=== PATIENT | male | born 1945 | race Caucasian/White ===

== ENCOUNTER 2023-01-17 06:37 | Observation (INO) | payer MEDICARE, BC ==
[2023-01-13 14:57] VITALS: BMI 23.7
[2023-01-17] MEDS ORDERED: fentaNYL PF 100 MCG/2 ML SYRINGE ONE (06:56)
[2023-01-17 07:56] LABS: Hematocrit 34.1 % (42.0-52.0); Hemoglobin 11.9 g/dL (14.0-18.0)
[2023-01-17] MEDS ORDERED: EPINEPHrine 1 MG/ML AMP ONE (07:57)
[2023-01-17] MEDS ORDERED: Lidocaine 1% (PF) 30 ML VIAL ONE (07:57)
[2023-01-17] MEDS ORDERED: Bacitracin Zinc Ointment 30 gm TUBE ONE (07:57)
[2023-01-17] MEDS ORDERED: SUGAMMADEX SODIUM 200 MG/2 ML VIAL ONE (08:04)
[2023-01-17] MEDS ORDERED: CEFAZOLIN 2 GM VIAL ONE (08:16)
[2023-01-17] MEDS ORDERED: Sodium Chloride 0.9% 100 ML ONE (08:16)
[2023-01-17 08:18] LABS: Anion Gap 11 mmol/L (10-20); BUN (Urea Nitrogen) 6 mg/dL (8.4-25.7); Calc. Creatinine Clearance 100 mL/min (70-130); Calcium 8.8 mg/dL (7.8-10.44); Carbon Dioxide 24 mmol/L (23-31); Chloride 101 mmol/L (98-107); Estimated GFR 94; Glucose 87 mg/dL (83-110); Potassium 3.9 mmol/L (3.5-5.1); Sodium 132 mmol/L (136-145)
[2023-01-17] MEDS ORDERED: PROPOFOL 200 MG/20 ML VIAL ONE (08:30)
[2023-01-17] MEDS ORDERED: Dexamethasone 20 MG/5 ML VIAL ONE (08:30)
[2023-01-17] MEDS ORDERED: Rocuronium Bromide 10 MG/ML (10ML VIAL) ONE (08:30)
[2023-01-17] MEDS ORDERED: Ondansetron PF 4 MG/2 ML Vial ONE (08:30)
[2023-01-17] MEDS ORDERED: ePHEDrine Sulfate 50 MG/10 ML VIAL ONE (08:30)
[2023-01-17] MEDS ORDERED: Lidocaine 1% PF 5 ML VIAL ONE (08:30)
[2023-01-17] MEDS ORDERED: PHENYLEPHRINE-NS 100 MCG/ML 10 ML SYRINGE ONE (08:30)
[2023-01-17] MEDS ORDERED: Morphine 2 MG/ML VIAL SLOW IVP PRN (11:59)
[2023-01-17] MEDS ORDERED: HYDROcodone/Acetaminophen 5/325 mg Tablet PO PRN (11:59)
[2023-01-17] MEDS ORDERED: Lactated Ringer's 1,000 ML IV SCH (12:00)
[2023-01-17] MEDS ORDERED: Ondansetron PF 4 MG/2 ML Vial IVP PRN (12:00)
[2023-01-17] MEDS ORDERED: diphenhydrAMINE 50 MG/ML VIAL IVP PRN (12:01)
[2023-01-17] MEDS ORDERED: diphenhydrAMINE 50 MG/ML VIAL IVP SCH (21:00)
[2023-01-17] MEDS ORDERED: Amlodipine 5 MG TAB PO SCH (21:00)
[2023-01-18 07:52] VITALS: BP 117/73; TEMP 98.2
[2023-01-20] MEDS ORDERED: FLU VACC QS2023(65UP)/MF59C/PF 60 MCG/0.5 ML SYRINGE IM ONE (09:00)
== END 2023-01-18 10:10 | disposition home or self-care (01) ==
LOC: SDC 06:37 → SJJU 11:29
PROVIDERS: ADMIT Student in an Organized Health Care Education/Training Program; ATTEND Student in an Organized Health Care Education/Training Program
PROC: 07B20ZX Excision of Left Neck Lymphatic, Open Approach, Diagnostic (ICD-10-PCS; principal; 2023-01-17)
DX: C85.11 Unspecified B-cell lymphoma, lymph nodes of head, face, and neck (principal); Z86.73 Personal history of transient ischemic attack (TIA), and cerebral infarction without residual deficits
CPT/HCPCS: 38510; 80048; 85014; 85018; 93005; C1889; 36415; 88184; 88305; 88307; 88341; 88342; 88360; 88365; 93010; J0171; J1100; J1200; J2001; J2405; J2704; J3490

== ENCOUNTER 2023-02-09 12:30 | Outpatient (CLI) | payer MEDICARE, BC | END 2023-02-09 12:31 | disposition home or self-care (01) | LOC: PET 12:30 | PROVIDERS: ATTEND Internal Medicine Hematology & Oncology | DX: C83.31 Diffuse large B-cell lymphoma, lymph nodes of head, face, and neck (principal); R59.0 Localized enlarged lymph nodes | CPT/HCPCS: 78816; A9552 ==

== ENCOUNTER → 2023-05-16 | Outpatient (CLI) | payer MEDICARE, BC | LOC: PET 08:00 | PROVIDERS: ATTEND Internal Medicine Hematology & Oncology | DX: C83.31 Diffuse large B-cell lymphoma, lymph nodes of head, face, and neck (principal) | CPT/HCPCS: 78815; A9552 ==

== ENCOUNTER 2023-09-28 13:07 | Outpatient (CLI) | payer MEDICARE | END 2023-09-28 13:08 | disposition home or self-care (01) | LOC: BICRAD 13:07 | PROVIDERS: ATTEND Internal Medicine Hematology & Oncology | DX: C83.31 Diffuse large B-cell lymphoma, lymph nodes of head, face, and neck (principal) | CPT/HCPCS: 71046; 80053; 84443 ==